=== PATIENT | male | born 1990 | race Caucasian/White ===

== ENCOUNTER 2018-02-14 15:17 | Observation (INO) | payer OTHER ==
[2018-02-14] MEDS ORDERED: methylPREDNISolone NA SUCC 125 MG/2 ML VIAL IVPB ONE (15:25)
--- NOTE | 2018-02-14 15:25 | PDOC ---
History of Present Illness - General History Source: Patient Exam Limitations: No Limitations <Beatriz Traylor - Last Filed: 02/14/18 18:10> - General History Source: Patient Exam Limitations: No Limitations - History of Present Illness Initial Comments: 02/14/18 16:09 The patient is a 27-year-old male, with a significant past medical history of asthma, who presents to the ED via EMS with severe asthma exacerbation. 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 The patient continued to work and did not take any albuterol. Soon after the patient collapsed, landing on his right shoulder. Patient does not recall the incident. EMS was called and the patient was given Decadron, DuoNeb 3, magnesium 3 g, epinephrine IM x 2 (or 3) prior to arrival to the ED. On exam, the patient states that he may have had a mild respiratory infection. He denies any nausea, vomiting, diarrhea, or abdominal pain. Allergies: NKA Surgical History: Denies Social History: Reports tobacco use. Pt is a social drinker. Denies any drug use. PCP: None <Mary Calix - Last Filed: 02/14/18 18:20> - General Chief Complaint: Asthma Stated Complaint: ASTHMA Time Seen by Provider: 02/14/18 15:25 Past History <Beatriz Traylor - Last Filed: 02/14/18 18:10> <Mary Calix - Last Filed: 02/14/18 18:20> - Past Medical History Allergies/Adverse Reactions: Allergies Allergy/AdvReac Type Severity Reaction Status Date / Time No Known Allergies Allergy Verified 02/14/18 15:33 Review of Systems - Review of Systems Able to Perform ROS?: Yes Comments:: 02/14/18 16:09 GENERAL/CONSTITUTIONAL: No: fever, chills, weakness, loss of appetite. HEAD, EYES, EARS, NOSE AND THROAT: No: change in vision, ear pain, discharge, sore throat, throat swelling. CARDIOVASCULAR: (+)palpitations. No: chest pain, lightheadedness, syncope RESPIRATORY: (+)shortness of breath. No: cough, wheezing, hemoptysis, stridor. GASTROINTESTINAL: No: nausea, vomiting, abdominal cramping, diarrhea, rectal bleeding, constipation. GENITOURINARY: No: dysuria, hematuria, frequency, urgency, flank pain. MUSCULOSKELETAL: No: back pain, neck pain, joint pain, muscle swelling or pain SKIN AND BREASTS: No: lesions, pallor, rash or easy bruising. NEUROLOGIC: (+)loss of consciousness. No: headache, vertigo, paresthesias, weakness ENDOCRINE: No: unexplained weight gain or loss HEMATOLOGIC/LYMPHATIC: No: anemia, easy bleeding, swelling nodes <Mary Calix - Last Filed: 02/14/18 18:20> *Physical Exam - Vital Signs Last Vital Signs Temp Pulse Resp BP Pulse Ox 98 F 118 H 18 140/75 100 02/14/18 15:20 02/14/18 15:20 02/14/18 15:20 02/14/18 15:20 02/14/18 15:20 - Physical Exam Comments: 02/14/18 16:10 GENERAL: The patient is in no acute distress. HEAD: Normal with no signs of trauma. EYES: PERRLA, EOMI, sclera anicteric, conjunctiva clear. ENT: Ears normal, nares patent, oropharynx clear without exudates. Moist mucous membranes. NECK: Normal range of motion, supple without lymphadenopathy, JVD, or masses. LUNGS: Breath sounds equal, clear to auscultation bilaterally. No wheezes, and no crackles. HEART:Regular rate and rhythm, normal S1 and S2 without murmur, rub or gallop. ABDOMEN: Soft, nontender, normoactive bowel sounds. No guarding, no rebound. EXTREMITIES: Normal range of motion, no edema. No clubbing or cyanosis. No erythema, or tenderness. NEUROLOGICAL: Cranial nerves II through XII grossly intact. Normal speech. No focal neurological deficits. MUSCULOSKELETAL: Back non-tender to palpation, no CVA tenderness SKIN: Warm, Dry, normal turgor, no rashes or lesions noted. <Mary Calix - Last Filed: 02/14/18 18:20> ED Treatment Course - LABORATORY CBC & Chemistry Diagram: 02/14/18 15:41 02/14/18 15:41 <Beatriz Traylor - Last Filed: 02/14/18 18:10> - LABORATORY CBC & Chemistry Diagram: 02/14/18 15:41 02/14/18 15:41 - ADDITIONAL ORDERS Additional order review: 02/14/18 15:41 RBC 5.28 MCV 86.0 MCHC 34.0 RDW 14.0 MPV 10.5 Neutrophils % No Result Required. Lymphocytes % No Result Required. - RADIOLOGY Radiology Studies Ordered: 02/14/18 18:20 Chest X-Ray was reviewed by Dr. Traylor and over-read by Radiology. Impression: No evidence of acute infiltrate, pulmonary vascular congestion or pleural effusion. <Mary Calix - Last Filed: 02/14/18 18:20> Medical Decision Making - Medical Decision Making 02/14/18 15:49 Mr. Nobles is a 27-year-old male brought into the emergency department via EMS due to severe asthma exacerbation. 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 Was at work today, felt that he had an asthma exacerbation. He could not stop working so persisted despite his shortness of breath and wheezing. Patient did not take any albuterol. Patient then collapsed while carrying a box. Has no memory of what happened. Landed on his right shoulder. EMS was called. Patient noted to be profoundly short of breath. He was given Decadron, DuoNeb 3, magnesium 3 g, epinephrine IM x 2(or 3) Patient presents emergency Department short of breath however able to speak in complete sentences. Patient appeared jumpy Mentation: Patient is diaphoretic, awake, alert Heart is tachycardic but regular, Lungs: No wheezing noted, equal breath sounds. No abdominal tenderness to palpation Will do: Labs, EKG, continuous monitoring. Will plan to place on observation given the amount of medication she was given for his asthma exacerbation. 02/14/18 16:38 Laboratory Tests 02/14/18 02/14/18 15:41 15:41 WBC 19.7 H Hgb 15.5 Hct 45.4 Plt Count 300 Sodium 140 Potassium 3.3 L Chloride 108 H Carbon Dioxide 22 Anion Gap 10 BUN 14 Creatinine 1.0 Random Glucose 129 H 02/14/18 17:08 EKG: SR, rate of 91 bpm, axis nml, intervals nml, t wave flattening noted through out, (+) PVCs Pt states she feels better Will place on observation <Beatriz Traylor - Last Filed: 02/14/18 18:10> *DC/Admit/Observation/Transfer - Discharge Dispostion Admit: Yes <Beatriz Traylor - Last Filed: 02/14/18 18:10> - Attestations Scribe Attestion: 02/14/18 16:36 Documentation prepared by Mary Calix, acting as bio medical technician for Beatriz Traylor MD. <Mary Calix - Last Filed: 02/14/18 18:20> Diagnosis at time of Disposition: Asthma exacerbation Qualifiers: Asthma severity: severe Asthma persistence: persistent Qualified Code(s): J45.51 - Severe persistent asthma with (acute) exacerbation - Discharge Dispostion Condition at time of disposition: Good
[2018-02-14] MEDS ORDERED: BENZOIN/ALOE VERA/STORAX/TOLU 58 ML BOTTLE ONE (15:36)
[2018-02-14] MEDS ORDERED: EPINEPHrine/PF 1 MG/1 ML (1:1,000) AMPULE ONE (15:38)
[2018-02-14] MEDS ORDERED: DEXAMETHASONE SOD PHOSPHATE 10 MG/1 ML VIAL ONE (15:38)
[2018-02-14] MEDS ORDERED: ALBUTEROL SO4 2.5/IPRATROPIUM 0.5 INH SOL 3 ML VIAL.NEB. NEB ONE (15:38)
[2018-02-14] MEDS ORDERED: MAGNESIUM SULF 50% (8.12 MEQ/2 ML-1 GM VIAL) ONE (15:38)
[2018-02-14 15:48] LABS: HEMATOCRIT 45.4 % (35.4-49); HEMOGLOBIN 15.5 GM/dL (11.7-16.9); MCH 29.3 pg (25.7-33.7); MEAN PLT VOLUME 10.5 fl (7.5-11.1); PLATELET COUNT 300 K/MM3 (134-434); RBC 5.28 M/mm3 (4.00-5.60); WHITE BLOOD COUNT 19.7 K/mm3 (4.0-10.0)
[2018-02-14 16:08] LABS: ALBUMIN 4.2 g/dl (3.4-5.0); ALK PHOS 137 U/L (45-117); ANION GAP 10 (8-16); BLOOD UREA NITROGEN 14 mg/dL (7-18); CALCIUM 9.3 mg/dL (8.5-10.1); CHLORIDE 108 mmol/L (98-107); CO2 22 mmol/L (21-32); GLUCOSE,RANDOM 129 mg/dL (74-106); POTASSIUM 3.3 mmol/L (3.5-5.1); SGOT/AST 18 U/L (15-37); SGPT/ALT 27 U/L (12-78); SODIUM 140 mmol/L (136-145); TOT PROT 7.7 g/dl (6.4-8.2)
[2018-02-14 18:01] LABS: PLATELET ESTIMATE ADEQUATE
--- NOTE | 2018-02-14 18:16 | HP ---
CHIEF COMPLAINT: Asthma attack PCP: None HISTORY OF PRESENT ILLNESS: The patient is a 27-year-old male, with a significant past medical history of asthma and migraine headaches with aura. His aura includes flashing lights, "black in the corners" of his eyes, and chest pressure. 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 He continued to work but the symptoms became worse. He collapsed, landing on his right shoulder. The next thing he remembers is EMS putting him on a stretcher. EMS administered Decadron , DuoNeb 3, magnesium 3 g, epinephrine IM x 2 (or 3) in the field. On exam in the ED, patient was diaphoretic and tachycardic. He was not wheezing. He stated he may have had a mild respiratory infection. Patient was transferred from the ED to the floor. Per nursing supervisor power reactor, as she was walking by patient's room she heard a thud. She went in to find patient on the floor. She observed eye-jerking movements and tonic-clonic type activity resulting in patient hitting his head against the floor. A rapid response was called (see separate note from Rapid Response Team). Patient remembers getting out of bed and falling to the floor, but not the events thereafter. When he woke up he saw flashing lights, the "black corners," and he had a headache typical of his migraines which is pain to right temporal lobe and occipital lobe. Patient was not incontinent nor did he bite his tongue during either episode. It is not clear if there was a post-ictal state. The patient has not seen a health care provider in many years. He buys albuterol from a pharmacy without a prescription. He takes Advil for his migraines. 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 Smoking: current every day Alcohol: beer on the weekends Drugs: marijuana; did Silke once three years ago Family History: mother age 62 with diabetes, h/o lower extremity blood clots on blood thinners, had CVA at age 52; father unknown; sister with diabetes and panic attacks Allergies No Known Allergies Allergy (Verified 02/14/18 15:33) HOME MEDICATIONS: Home Medications Medication Instructions Recorded None 02/14/18 REVIEW OF SYSTEMS CONSTITUTIONAL: Absent: fever, chills, diaphoresis, generalized weakness, malaise, loss of appetite, weight change HEENT: Absent: rhinorrhea, nasal congestion, throat pain, throat swelling, difficulty swallowing, mouth swelling, ear pain, eye pain, visual changes CARDIOVASCULAR: +chest pressure, palpitations Absent: chest pain, syncope, palpitations, irregular heart rate, lightheadedness , peripheral edema RESPIRATORY: +SOB Absent: cough, dyspnea with exertion, orthopnea, wheezing, stridor, hemoptysis GASTROINTESTINAL: Absent: abdominal pain, abdominal distension, nausea, vomiting, diarrhea, constipation, melena, hematochezia GENITOURINARY: Absent: dysuria, frequency, urgency, hesitancy, hematuria, flank pain, genital pain MUSCULOSKELETAL: Absent: myalgia, arthralgia, joint swelling, back pain, neck pain SKIN: Absent: rash, itching, pallor HEMATOLOGIC/IMMUNOLOGIC: Absent: easy bleeding, easy bruising, lymphadenopathy, frequent infections ENDOCRINE: Absent: unexplained weight gain, unexplained weight loss, heat intolerance, cold intolerance NEUROLOGIC: Absent: headache, focal weakness or paresthesias, dizziness, unsteady gait, seizure, mental status changes, bladder or bowel incontinence PSYCHIATRIC: Absent: anxiety, depression, suicidal or homicidal ideation, hallucinations. PHYSICAL EXAMINATION Vital Signs - 24 hr 02/14/18 15:20 Temperature 98 F Pulse Rate 118 H Respiratory 18 Rate Blood Pressure 140/75 O2 Sat by Pulse 100 Oximetry (%) GENERAL: Awake, alert, and fully oriented, in no acute distress. HEAD: Normal with no signs of trauma. EYES: Pupils equal, round and reactive to light, extraocular movements intact, sclera anicteric, conjunctiva clear. No lid lag. EARS, NOSE, THROAT: Ears normal, nares patent, oropharynx clear without exudates. Moist mucous membranes. NECK: Normal range of motion, supple without lymphadenopathy, JVD, or masses. LUNGS: Mild end-expiratory wheezing HEART: Regular rate and rhythm, normal S1 and S2 without murmur, rub or gallop. ABDOMEN: Soft, nontender, not distended, normoactive bowel sounds, no guarding, no rebound, no masses. MUSCULOSKELETAL: Normal range of motion at all joints. No bony deformities or tenderness. No CVA tenderness. UPPER EXTREMITIES: 2+ pulses, warm, well-perfused. No cyanosis. No clubbing. No peripheral edema. LOWER EXTREMITIES: 2+ pulses, warm, well-perfused. No calf tenderness. No peripheral edema. NEUROLOGICAL: Cranial nerves II-XII intact. Normal speech. Laboratory Results - last 24 hr 02/14/18 02/14/18 15:41 15:41 WBC 19.7 H RBC 5.28 Hgb 15.5 Hct 45.4 MCV 86.0 MCH 29.3 MCHC 34.0 RDW 14.0 Plt Count 300 MPV 10.5 Neutrophils % No Result Required. Neutrophils % (Manual) 54.0 Band Neutrophils % 0.0 Lymphocytes % No Result Required. Lymphocytes % (Manual) 35.0 Monocytes % (Manual) 2 L Eosinophils % (Manual) 0.0 Basophils % (Manual) 1.0 Platelet Estimate Adequate Sodium 140 Potassium 3.3 L Chloride 108 H Carbon Dioxide 22 Anion Gap 10 BUN 14 Creatinine 1.0 Creat Clearance w eGFR > 60 Random Glucose 129 H Calcium 9.3 Total Bilirubin 1.0 AST 18 ALT 27 Alkaline Phosphatase 137 H Total Protein 7.7 Albumin 4.2 ASSESSMENT/PLAN: 27 year-old male with a PMH significant for asthma and migraine with aura. Collapsed at work. Following transfer to floor from ED was heard falling to floor and seizure-type activity observed. Syncope --cardiac --two episodes of falling to the floor, one pre-hospital, one on med surg floor --transfer to telemetry --serial ECGs --echo ordered --correct electrolytes K>4, Mg>2 --cardiology consult Dr. Chavarria --pulmonary --Wells score 1.5, low risk --d-dimer pending --US BLE pending to r/o DVT --neuro --seizure-type activity observed by staff after second fall --no previous history of seizures but history of migraines with aura --CT head negative --utox pending --EEG --neuro consult for Dr. Hernández --orthostasis --NS x 1L now, then 125mL/hr --s/p fall --right shoulder xray pending --endocrine --fingersticks q4h --infectious --leukocytosis --iraheta-culture --requests HIV testing Asthma --duonebs scheduled and PRN FEN Fluids: NS @ 125mL/hr Electrolytes: replete as indicated Nutrition: regular diet DVT prophylaxis: oob, ambulation Dispo: continues to require observation. Full code. Visit type - Emergency Visit Emergency Visit: Yes ED Registration Date: 02/14/18 Care time: The patient presented to the Emergency Department on the above date and was hospitalized for further evaluation of their emergent condition. - New Patient This patient is new to me today: Yes Date on this admission: 02/14/18 - Critical Care Critical Care patient: No Hospitalist Screening - Colonoscopy Questionnaire Colonoscopy Questionnaire: Colonoscopy Questionnaire - Patient: 50 - 75 years old and never had a screening colonoscopy: No History of colon or rectal polyps, or CA: No History of IBD, Crohn's disease or UC: No History of abdominal radiation therapy as a child: No - Relative: 1 with colon or rectal CA, or polyps at age 60 or younger: Unknown Colon or rectal CA diagnosed at age 45 or younger: Unknown Multiple relatives with colon or rectal CA: Unknown - Outcome: Screening Result: Negative Screen
--- NOTE | 2018-02-14 19:17 | RAPID ---
Physical Examination Vital Signs: Vital Signs Temperature 98 F 02/14/18 15:20 Pulse Rate 99 H 02/14/18 18:49 Respiratory Rate 16 02/14/18 18:49 Blood Pressure 140/67 02/14/18 18:49 O2 Sat by Pulse Oximetry (%) 96 02/14/18 18:49 Findings/Remarks: Rapid Response called overhead. Patient was walking from the bathroom. Patient complained of palpitations and a sense of impending doom. He had a headache and his legs felt weak. He started feeling weak and fell. He denies LOC, loss of bowel/bladder, numbness/tingling. He feels anxious currently. He wants to go home. Patient received epinephrine earlier today in EMS. BP: 156/90 Pulse 78 Glucose- 129 HENT: Yes: Atraumatic, Normocephalic Cardiovascular: Yes: Tachycardia, S1, S2 Respiratory: Yes: Regular, CTA Bilaterally Labs: CBC, BMP 02/14/18 15:41 02/14/18 15:41 Rapid Response - Rapid Response Assessment: Likely vasovagal syncopal episode. No LOC Plan: Observe overnight Orthostatic vital signs Will continue to monitor
[2018-02-14] MEDS ORDERED: ACETAMINOPHEN 325 MG TABLET (FP) PO ONE (19:21)
[2018-02-14] MEDS ORDERED: SODIUM CHLORIDE 1,000 ML IV STA ×2 (20:43→21:57)
[2018-02-14] MEDS ORDERED: SODIUM CHLORIDE 1,000 ML IV SCH ×2 (20:45→21:57)
[2018-02-14] MEDS ORDERED: POTASSIUM CHLORIDE TABS 20 MEQ TABLET.ER (FP) PO SCH (21:00)
[2018-02-14] MEDS ORDERED: ALBUTEROL SO4 2.5/IPRATROPIUM 0.5 INH SOL 3 ML VIAL.NEB. NEB SCH (22:00)
[2018-02-14] MEDS: ALBUTEROL SO4 2.5/IPRATROPIUM 0.5 INH SOL 3 ML VIAL.NEB. NEB SCH (22:24)
[2018-02-14 22:35] LABS: URINE APPEARANCE CLEAR; URINE BILIRUBIN NEGATIVE (<2.0 mg/dL); URINE BLOOD NEGATIVE (NEGATIVE); URINE COLOR LTYELLOW; URINE GLUCOSE (UA) NEGATIVE (NEGATIVE); URINE KETONE 1+ (NEGATIVE); URINE LEUK ESTERASE NEGATIVE (NEGATIVE); URINE NITRITE NEGATIVE (NEGATIVE); URINE PROTEIN NEGATIVE (NEGATIVE); URINE UROBILINOGEN NEGATIVE mg/dL (0.2-1.0)
[2018-02-14 23:07] LABS: COCAINE, UR NEGATIVE ng/ml (CUTOFF=300); METHADONE, UR NEGATIVE ng/ml (CUTOFF=300); OPIATES, URI NEGATIVE ng/ml (CUTOFF=300); PHENCYCLIDINE,URINE NEGATIVE ng/ml (CUTOFF=25); URINE AMPHETAMINES NEGATIVE ng/ml (CUTOFF=500); URINE BARBITURATES NEGATIVE ng/ml (CUTOFF=200); URINE BENZODIAZEPINES NEGATIVE ng/ml (CUTOFF=200)
[2018-02-15 01:56] VITALS: BMI 30.5
[2018-02-15] MEDS: ALBUTEROL SO4 2.5/IPRATROPIUM 0.5 INH SOL 3 ML VIAL.NEB. NEB SCH ×6 (02:03→22:00)
[2018-02-15] MEDS ORDERED: ACETAMINOPHEN 325 MG TABLET (FP) PO PRN (02:37)
[2018-02-15] MEDS ORDERED: POTASSIUM CHLORIDE TABS 20 MEQ TABLET.ER (FP) PO SCH (03:00)
[2018-02-15 07:21] LABS: BASO % 0.1 % (0-2.0); HEMATOCRIT 43.4 % (35.4-49); HEMOGLOBIN 14.8 GM/dL (11.7-16.9); LYMPH % 20.7 % (8-40); MCH 29.2 pg (25.7-33.7); MCHC 34.1 g/dl (32.0-35.9); MEAN CELL VOLUME 85.7 fl (80-96); MEAN PLT VOLUME 10.1 fl (7.5-11.1); MONO % 5.1 % (3.8-10.2); NEUT % 74.1 % (42.8-82.8); PLATELET COUNT 228 K/MM3 (134-434); RBC 5.07 M/mm3 (4.00-5.60); WHITE BLOOD COUNT 9.8 K/mm3 (4.0-10.0)
[2018-02-15 07:51] LABS: CHLORIDE 111 mmol/L (98-107); SODIUM 139 mmol/L (136-145)
[2018-02-15 07:55] LABS: ANION GAP 4 (8-16); BLOOD UREA NITROGEN 9 mg/dL (7-18); CALCIUM 8.7 mg/dL (8.5-10.1); CO2 24 mmol/L (21-32); CREATININE 0.6 mg/dL (0.7-1.3); GLUCOSE,RANDOM 103 mg/dL (74-106); MAGNESIUM 2.1 mg/dL (1.8-2.4)
--- NOTE | 2018-02-15 08:45 | PN ---
Physical Exam: SUBJECTIVE: Patient seen and examined. Overnight events noted. Pt states he feels much better this morning and his breathing is back to baseline. OBJECTIVE: Vital Signs Period Temp Pulse Resp BP Sys/Yousif Pulse Ox Last 24 Hr 97.3 F-98.1 F 67-118 16-20 112-156/50-101 96-100 PE Neuro: alert, awake, cn 2-12intact Pulm: few rhonchi, no wheezing CV: s1s2 tachycardia Abd: s nt nd + bs Ext: warm, no le edema Laboratory Results - last 24 hr 02/15/18 02/15/18 02/15/18 00:05 06:49 06:49 WBC 9.8 D RBC 5.07 Hgb 14.8 Hct 43.4 MCV 85.7 MCH 29.2 MCHC 34.1 RDW 14.0 Plt Count 228 D MPV 10.1 Neutrophils % 74.1 Neutrophils % (Manual) Band Neutrophils % Lymphocytes % 20.7 Lymphocytes % (Manual) Monocytes % 5.1 Monocytes % (Manual) Eosinophils % 0.0 Eosinophils % (Manual) Basophils % 0.1 Basophils % (Manual) Platelet Estimate D-Dimer Sodium 139 Potassium 4.0 D Chloride 111 H Carbon Dioxide 24 Anion Gap 4 L BUN 9 D Creatinine 0.6 L D Creat Clearance w eGFR POC Glucometer Random Glucose 103 D Calcium 8.7 Magnesium 2.1 Total Bilirubin AST ALT Alkaline Phosphatase C-Reactive Protein < 0.3 Total Protein Albumin Urine Color Urine Appearance Urine pH Ur Specific [place] Urine Protein Urine Glucose (UA) Urine Ketones Urine Blood Urine Nitrite Urine Bilirubin Urine Urobilinogen Ur Leukocyte Esterase Opiates Screen Methadone Screen Barbiturate Screen Phencyclidine Screen Ur Amphetamines Screen MDMA (Ecstasy) Screen Benzodiazepines Screen Cocaine Screen U Marijuana (THC) Screen Active Medications Generic Name Dose Route Start Last Admin Trade Name Freq PRN Reason Stop Dose Admin Acetaminophen 650 mg 02/15/18 02:37 02/15/18 02:55 Tylenol - PO 650 mg Q6H PRN Administration PAIN OR FEVER Albuterol/Ipratropium 1 amp 02/14/18 22:00 02/15/18 06:09 Duoneb - NEB 1 amp Q4H BARBIE Administration Sodium Chloride 1,000 mls @ 125 mls/hr 02/14/18 21:57 02/15/18 01:40 Normal Saline - IV 125 mls/hr ASDIR BARBIE Administration Assessment: 27 year old male with a PMH significant for asthma and migraine with aura. Collapsed at work. Following transfer to floor from ED was heard falling to floor and seizure-type activity observed. Plan: 1. Syncope - x2 episodes during admission - ECHO ordered - Initially orthostatic positive, will repeat now - Cardiology consulted 2. Acute asthma exacerbation - Improved with solumedrol 125mg - Short course medrol 40mg BID - Duonebs - DVT Doppler negative 3. ? seizures, history of migraines with aura - EEG ordered - Neuro consult placed 4. s/p fall -right shoulder xray pending 5. Leukocytosis - Resolved 6. DVT prophylaxis: oob, ambulation Dispo: continues to require observation. Full code. Visit type - Emergency Visit Emergency Visit: Yes ED Registration Date: 02/14/18 Care time: The patient presented to the Emergency Department on the above date and was hospitalized for further evaluation of their emergent condition. - New Patient This patient is new to me today: Yes Date on this admission: 02/15/18 - Critical Care Critical Care patient: No
[2018-02-15] MEDS: methylPREDNISolone NA SUCC 40 MG/1 ML VIAL IVPUSH SCH ×2 (10:00→21:37)
--- NOTE | 2018-02-15 12:59 | CON.CARD ---
Consult Consult Specialty:: cardiology Referred by:: John Reason for Consultation:: Syncope - History of Present Illness Chief Complaint: Shortness of breath and syncope History of Present Illness: The patient is a 27-year-old man with a history of asthma, migraine headaches, now presenting with syncope and collapse. 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 He claims that this was the beginning of an asthma exacerbation. The patient had to continue his job. His shortness of breath gradually progressed, and he suddenly collapsed. The patient had a second syncopal event in his room. No events noted on telemetry. The patient has been in sinus rhythm. He claims that he is feeling well. He is back to his baseline. The pulmonary embolus was ruled out by CT. Brain imaging was unremarkable. Telemetry shows sinus rhythm. No arrhythmias documented at this point. 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 Pulmonary: Yes: Asthma - Alcohol/Substance Use Hx Alcohol Use: No - Smoking History Smoking history: Current some day smoker Have you smoked in the past 12 months: Yes Aproximately how many cigarettes per day: 10 Home Medications - Allergies Allergies/Adverse Reactions: Allergies Allergy/AdvReac Type Severity Reaction Status Date / Time No Known Allergies Allergy Verified 02/14/18 15:33 - Home Medications Home Medications: Ambulatory Orders Unobtainable [Unobtainable] 02/14/18 Review of Systems - Review of Systems Constitutional: reports: No Symptoms Eyes: reports: No Symptoms HENT: reports: No Symptoms Neck: reports: No Symptoms Cardiovascular: reports: No Symptoms Respiratory: reports: SOB Gastrointestinal: reports: No Symptoms Genitourinary: reports: No Symptoms Breasts: reports: No Symptoms Reported Musculoskeletal: reports: No Symptoms Integumentary: reports: No Symptoms Neurological: reports: No Symptoms Endocrine: reports: No Symptoms Hematology/Lymphatic: reports: No Symptoms Psychiatric: reports: No Symptoms Vital Signs: Vital Signs Temperature 97.3 F L 02/15/18 06:00 Pulse Rate 90 02/15/18 06:00 Respiratory Rate 20 02/15/18 06:00 Blood Pressure 112/50 02/15/18 06:00 O2 Sat by Pulse Oximetry (%) 98 02/14/18 22:00 Constitutional: Yes: Well Nourished, No Distress, Calm Eyes: Yes: WNL, Conjunctiva Clear, EOM Intact HENT: Yes: WNL, Atraumatic, Normocephalic Neck: Yes: WNL, Supple, Trachea Midline Respiratory: Yes: WNL, Regular, CTA Bilaterally Gastrointestinal: Yes: WNL, Normal Bowel Sounds, Soft Renal/: Yes: WNL Cardiovascular: Yes: WNL, Regular Rate and Rhythm JVD: No Carotid Bruit: No Heart Sounds: Yes: S1, S2 Musculoskeletal: Yes: WNL Extremities: Yes: WNL Edema: No Peripheral Pulses WNL: Yes Peripheral Pulses: 2+ Left Carotid, 2+ Right Carotid, 2+ Left Femoral, 2+ Right Femoral, 2+ Left Popliteal, 2+ Right Popliteal, 2+ Left Doralis Pedis, 2+ Right Dorsalis Pedis Neurological: Yes: WNL, Alert, Oriented ...Motor Strength: WNL Psychiatric: Yes: WNL - Other Data Labs, Other Data: CBC, BMP 02/15/18 06:49 02/15/18 06:49 Assessment/Plan 27-year-old man presenting with syncope and shortness of breath. Most likely asthma exacerbation with hypoxemia at the field. Had a syncopal event in the hospital 2. There is no evidence of ischemia nor acute coronary syndrome. The patient is in sinus rhythm. No arrhythmias documented at this point. Chest CT showed no evidence of pulmonary emboli. Brain imaging was unremarkable. Please continue telemetry for the time being. Encourage PO fluid intake. Please arrange for an echocardiogram. Respiratory toilet. No need for further cardiac workup at this point. The patient is stable.
[2018-02-15] MEDS ORDERED: PNEUMOC 13-VAL CONJ-DIP CRM/PF 0.5 ML DISP.SYRIN IM ONE (14:46)
--- NOTE | 2018-02-15 15:47 | CON.NEURO ---
Consult - History of Present Illness History of Present Illness: The patient is a 27-year-old male, with a significant past medical history of asthma and migraine headaches with aura. His aura includes flashing lights, "black in the corners" of his eyes, and chest pressure. 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 He continued to work but the symptoms became worse. He collapsed, landing on his right shoulder. The next thing he remembers is EMS putting him on a stretcher. EMS administered Decadron , DuoNeb 3, magnesium 3 g, epinephrine IM x 2 (or 3) in the field. On exam in the ED, patient was diaphoretic and tachycardic. He was not wheezing. He stated he may have had a mild respiratory infection. Patient was transferred from the ED to the floor. Per nursing machine maintenance supervisor, as she was walking by patient's room she heard a thud. She went in to find patient on the floor. She observed eye-jerking movements and tonic-clonic type activity resulting in patient hitting his head against the floor. A rapid response was called (see separate note from Rapid Response Team). Patient remembers getting out of bed and falling to the floor, but not the events thereafter. When he woke up he saw flashing lights, the "black corners," and he had a headache typical of his migraines which is pain to right temporal lobe and occipital lobe. Patient was not incontinent nor did he bite his tongue during either episode. It is not clear if there was a post-ictal state. The patient has not seen a health care provider in many years. He buys albuterol from a pharmacy without a prescription. He takes Advil for his migraines. -Yesterday-Rapid Response called overhead. Patient was walking from the bathroom. Patient complained of palpitations and a sense of impending doom. He had a headache and his legs felt weak. He started feeling weak and fell. He denies LOC, loss of bowel/bladder, numbness/tingling. -He describes his migraine as ocurring every week, has a visual aura followed by 2 hours at least of holocephalgic headache, takes Advil with moderate relief for it. Denies family hx. of headaches. 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 Pulmonary: Yes: Asthma - Alcohol/Substance Use Hx Alcohol Use: No - Smoking History Smoking history: Current some day smoker Have you smoked in the past 12 months: Yes Aproximately how many cigarettes per day: 10 Home Medications - Allergies Allergies/Adverse Reactions: Allergies Allergy/AdvReac Type Severity Reaction Status Date / Time No Known Allergies Allergy Verified 02/14/18 15:33 - Home Medications Home Medications: Ambulatory Orders Unobtainable [Unobtainable] 02/14/18 Physical Exam-Neuro Vital Signs: Vital Signs Temperature 97.9 F 02/15/18 14:00 Pulse Rate 82 02/15/18 14:00 Respiratory Rate 18 02/15/18 14:00 Blood Pressure 127/87 02/15/18 14:00 O2 Sat by Pulse Oximetry (%) 100 02/15/18 09:00 Labs: CBC, BMP 02/15/18 06:49 02/15/18 06:49 - Neuro Exam DTR's: 2+ Left Bicep, 2+ Right Bicep, 2+ Left Tricep, 2+ Right Tricep, 2+ Left Brachioradialis, 2+ Right Brachioradialis, 2+ Left Achilles, 2+ Right Achilles Motor Strength: 5/5: Left Arm, Right Arm, Left Leg, Right Leg Imaging - Results Cat Scan: Report Reviewed (Without acute changes, normal) Assessment/Plan Pt. with migraine without aura, admitted with episode of syncope during an asthma attack and a presyncopal episode in hospital after suddenly standing up. Neuro exam without focality. The syncope/presyncope likely due to hypoxia/ orthostasis, there is no evidence these two episodes were seizures. Oferred him prophylactic treatment for migraine but he refused. Have recommended 500mg of Naproxyn prn for headache. He will f/u at my office. Thank you, Esdras Hernández MD
[2018-02-15] MEDS ORDERED: PNEUMOCOCCAL 23 VACCINE 0.5 ML VIAL IM ONE (16:00)
[2018-02-15] MEDS ORDERED: FLU VACCINE QUAD 60 MCG/0.5 ML (MDV 17-18) IM ONE (16:00)
--- NOTE | 2018-02-15 17:41 | EKG ---
Test Reason : Blood Pressure : / mmHG Vent. Rate : 085 BPM Atrial Rate : 085 BPM P-R Int : 144 ms QRS Dur : 106 ms QT Int : 374 ms P-R-T Axes : 051 067 043 degrees QTc Int : 445 ms SINUS RHYTHM WITH SINUS ARRHYTHMIA WITH OCCASIONAL PREMATURE VENTRICULAR COMPLEXES OTHERWISE NORMAL ECG WHEN COMPARED WITH ECG OF 14-FEB-2018 15:44, NON-SPECIFIC CHANGE IN ST SEGMENT IN ANTERIOR LEADS T WAVE INVERSION NO LONGER EVIDENT IN ANTERIOR LEADS Confirmed by MD LETA, BETTY ([id number]) on 02/15/2018 5:40:54 PM Referred By: William CABELLO Confirmed By:BETTY GILLETTE MD
[2018-02-16] MEDS: ALBUTEROL SO4 2.5/IPRATROPIUM 0.5 INH SOL 3 ML VIAL.NEB. NEB SCH ×2 (02:05→06:40)
--- NOTE | 2018-02-16 08:28 | PN ---
Physical Exam: SUBJECTIVE: Patient seen and examined. He has returned to his baseline he feels well. OBJECTIVE: Vital Signs Period Temp Pulse Resp BP Sys/Yousif Pulse Ox Last 24 Hr 97.7 F-98.5 F 63-91 16-20 115-134/60-87 100-100 PE Neuro: alert, awake, cn 2-12intact Pulm: CTAB no cough no wheezing CV: s1s2 rrr Abd: s nt nd + bs Ext: warm, no le edema Laboratory Results - last 24 hr 02/15/18 02/15/18 02/15/18 00:05 06:49 06:49 Hemoglobin A1c % 5.0 Prolactin 6.8 HIV 1&2 Antibody Screen Negative HIV P24 Antigen Negative Active Medications Generic Name Dose Route Start Last Admin Trade Name Freq PRN Reason Stop Dose Admin Acetaminophen 650 mg 02/15/18 02:37 02/15/18 02:55 Tylenol - PO 650 mg Q6H PRN Administration PAIN OR FEVER Albuterol/Ipratropium 1 amp 02/14/18 22:00 02/16/18 06:40 Duoneb - NEB 1 amp Q4H BARBIE Administration Methylprednisolone Sodium Succinate 40 mg 02/15/18 10:00 02/15/18 21:37 Solu-Medrol - IVPUSH 40 mg BID BARBIE Administration Assessment: 27 year old male with a PMH significant for asthma and migraine with aura. Collapsed at work. Following transfer to floor from ED was heard falling to floor and seizure-type activity observed. Plan: 1. Syncope - x2 episodes during admission likely due to hypoxia 2/2 asthma exacerbation, no signs of ACS - ECHO ordered - Orthostatic negative - Cardiology seeing 2. Acute asthma exacerbation - Can taper to po steroids, home with short taper 40mg x3 more days - Duonebs - DVT Doppler negative - Referral for pulmonary Dr. Rodriguez enclosed 3. Migraines - Seizures ruled out, more likely pre syncope/syncope d/t hypoxemia - Naproxyn 500mg for PHELAN and neuro follow up in office 4. Leukocytosis - Resolved 5. DVT prophylaxis: oob, ambulation Dispo: - DC home following ECHO Visit type - Emergency Visit Emergency Visit: Yes ED Registration Date: 02/14/18 Care time: The patient presented to the Emergency Department on the above date and was hospitalized for further evaluation of their emergent condition. - New Patient This patient is new to me today: No - Critical Care Critical Care patient: No
[2018-02-16] MEDS: predniSONE 20 MG TABLET (UD) PO SCH (10:22)
--- NOTE | 2018-02-16 16:19 | EKG ---
Test Reason : Blood Pressure : / mmHG Vent. Rate : 091 BPM Atrial Rate : 091 BPM P-R Int : 142 ms QRS Dur : 092 ms QT Int : 394 ms P-R-T Axes : 040 037 040 degrees QTc Int : 484 ms SINUS RHYTHM WITH SINUS ARRHYTHMIA WITH OCCASIONAL PREMATURE VENTRICULAR COMPLEXES LEFT ATRIAL ENLARGEMENT NONSPECIFIC ST ABNORMALITY ABNORMAL ECG NO PREVIOUS ECGS AVAILABLE Confirmed by MD LETA, BETTY ([id number]) on 02/16/2018 4:19:46 PM Referred By: Confirmed By:BETTY GILLETTE MD
[2018-02-17] MEDS: predniSONE 20 MG TABLET (UD) PO SCH (09:07)
--- NOTE | 2018-02-17 14:21 | DS ---
Physical Exam: SUBJECTIVE: Patient seen and examined OBJECTIVE: Vital Signs Period Temp Pulse Resp BP Sys/Yousif Pulse Ox Last 24 Hr 97.7 F-98.5 F 62-85 16-20 115-130/51-76 97-100 PHYSICAL EXAM GENERAL: The patient is awake, alert, and fully oriented, in no acute distress. HEAD: Normal with no signs of trauma. EYES: PERRL, extraocular movements intact, sclera anicteric, conjunctiva clear. ENT: Ears normal, nares patent, oropharynx clear without exudates, moist mucous membranes. NECK: Trachea midline, full range of motion, supple. LUNGS: Breath sounds equal, clear to auscultation bilaterally, no wheezes, no crackles, no accessory muscle use. HEART: Regular rate and rhythm, S1, S2 without murmur, rub or gallop. ABDOMEN: Soft, nontender, nondistended, normoactive bowel sounds, no guarding, no rebound, no hepatosplenomegaly, no masses. EXTREMITIES: 2+ pulses, warm, well-perfused, no edema. NEUROLOGICAL: Cranial nerves II through XII grossly intact. Normal speech, gait not observed. PSYCH: Normal mood, normal affect. SKIN: Warm, dry, normal turgor, no rashes or lesions noted. LABS HOSPITAL COURSE: Date of Admission:02/14/18 Date of Discharge: 02/17/18 Discharge Summary Reason For Visit: EXACERBATION OF ASTHMA Current Active Problems Asthma exacerbation (Acute) Condition: Improved - Instructions Referrals: Sterling Cooper MD [Staff Physician] - Disposition: HOME - Home Medications Comprehensive Discharge Medication List: Ambulatory Orders Unobtainable [Unobtainable] 02/14/18
--- NOTE | 2018-02-17 14:30 | PN ---
Progress Note, Physician Chief Complaint: no new events tele neg History of Present Illness: The patient is a 27-year-old man with a history of asthma, migraine headaches, now presenting with syncope and collapse. 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 He claims that this was the beginning of an asthma exacerbation. The patient had to continue his job. His shortness of breath gradually progressed, and he suddenly collapsed. The patient had a second syncopal event in his room. No events noted on telemetry. The patient has been in sinus rhythm. He claims that he is feeling well. He is back to his baseline. The pulmonary embolus was ruled out by CT. Brain imaging was unremarkable. Telemetry shows sinus rhythm. No arrhythmias documented at this point. Echo ordered and pending. - Current Medication List Current Medications: Active Medications Acetaminophen (Tylenol -) 650 mg PO Q6H PRN PRN Reason: PAIN OR FEVER Last Admin: 02/15/18 02:55 Dose: 650 mg Prednisone (Deltasone -) 40 mg PO DAILY BARBIE Last Admin: 02/17/18 09:07 Dose: 40 mg - Objective Vital Signs: Vital Signs Temperature 98 F 02/17/18 09:00 Pulse Rate 78 02/17/18 09:00 Respiratory Rate 18 02/17/18 09:00 Blood Pressure 130/74 02/17/18 09:00 O2 Sat by Pulse Oximetry (%) 100 02/17/18 09:00 Constitutional: Yes: Well Nourished, No Distress Eyes: Yes: Conjunctiva Clear, EOM Intact HENT: Yes: Atraumatic, Normocephalic Neck: Yes: Trachea Midline Cardiovascular: Yes: Regular Rate and Rhythm Respiratory: Yes: CTA Bilaterally Gastrointestinal: Yes: Normal Bowel Sounds Musculoskeletal: Yes: WNL Extremities: Yes: WNL Labs: CBC, BMP 02/15/18 06:49 02/15/18 06:49 Problem List - Problems (1) Syncope Assessment/Plan: Telemetry negative. Re check orthostatics Echo pending. Doubt arrhythmia. Code(s): R55 - SYNCOPE AND COLLAPSE Qualifiers: Syncope type: unspecified Qualified Code(s): R55 - Syncope and collapse
[2018-02-17 16:16] VITALS: BP 115/66; PULSE 70; TEMP 98.3
--- NOTE | 2018-02-19 13:20 | EKG ---
Test Reason : Blood Pressure : / mmHG Vent. Rate : 086 BPM Atrial Rate : 086 BPM P-R Int : 148 ms QRS Dur : 104 ms QT Int : 372 ms P-R-T Axes : 048 054 052 degrees QTc Int : 445 ms NORMAL SINUS RHYTHM NORMAL ECG WHEN COMPARED WITH ECG OF 14-FEB-2018 15:44, PREMATURE VENTRICULAR COMPLEXES ARE NO LONGER PRESENT T WAVE INVERSION NO LONGER EVIDENT IN ANTERIOR LEADS Confirmed by AZALIA MAC, MING ([id number]) on 02/19/2018 1:20:05 PM Referred By: Confirmed By:MING VIEYRA MD
== END 2018-02-17 18:17 | disposition home or self-care (01) ==
LOC: JER 15:17 → JERBED 18:10 → J6S 18:55 → J4W 21:33
PROVIDERS: ADMIT Internal Medicine; ATTEND Nurse Practitioner Acute Care
PROC: 3E0333Z Introduction of Anti-inflammatory into Peripheral Vein, Percutaneous Approach (ICD-10-PCS; principal; 2018-02-14)
PROC: 3E0337Z Introduction of Electrolytic and Water Balance Substance into Peripheral Vein, Percutaneous Approach (ICD-10-PCS; 2018-02-14)
PROC: 3E0F7GC Introduction of Other Therapeutic Substance into Respiratory Tract, Via Natural or Artificial Opening (ICD-10-PCS; 2018-02-14)
DX: J45.51 Severe persistent asthma with (acute) exacerbation (principal); F17.210 Nicotine dependence, cigarettes, uncomplicated; R55 Syncope and collapse; G43.909 Migraine, unspecified, not intractable, without status migrainosus; W18.39XA Other fall on same level, initial encounter; Y93.89 Activity, other specified; Y92.230 Patient room in hospital as the place of occurrence of the external cause; D72.829 Elevated white blood cell count, unspecified
CPT/HCPCS: 36415; 70450-TC; 71045-TC-FY; 73030-TC-RT-FY; 80048; 80053; 80307; 81003; 82962; 83036; 83735; 84146; 85025; 85379; 86140; 87040; 87086; 87389; 87804; 87899; 90688; 90732; 93005; 93010; 93306-TC; 93970-TC; 94640; 95816; 96361; 96374; 99283-25; G0009; G0378; J7030

== ENCOUNTER 2018-06-13 11:51 | Emergency (ER) | payer SELFPAY ==
--- NOTE | 2018-06-13 11:55 | PDOC ---
History of Present Illness - General Chief Complaint: Syncope/Near Syncope Stated Complaint: Syncope/Near Syncope Time Seen by Provider: 06/13/18 11:54 History Source: Patient, EMS Exam Limitations: No Limitations - History of Present Illness Initial Comments: 27 y/o male presenting via ambulance to [facility] ED after passing out at work. Pt states he was working outside and became very hot. He started experiencing chest tightness and lightheadedness just before blacking out. He awoke a little bit later without complaint. Denies head, neck, or back pain. Denies headache, change in vision, change in hearing, dizziness, numbness, paresthesia, chest pain, shortness of breath, abdominal pain, nausea, vomiting, or diarrhea. 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 Medic noted vitals were normal; BGL was 80; 12- lead EKG showed frequent PVCs but no other ectopy. Endorses a history of syncope. Last episode occurred under similar circumstances - he became hot while working outside. He was evaluated and discharged home by ER in [place]. Did not recall workup or diagnosis. Does not have a PCP. Has never had additional syncope workup. Denies family history of sudden at young age, syncope, or cardiac arrhythmia. EtOH: Drinks socially, last two weeks ago Tobacco: Current smoker, 1 pack per 2 weeks Illicit Drug: Denies Past History - Past Medical History Allergies/Adverse Reactions: Allergies Allergy/AdvReac Type Severity Reaction Status Date / Time No Known Allergies Allergy Verified 06/13/18 12:17 Home Medications: Ambulatory Orders Albuterol Sulfate Inhaler - [Ventolin Hfa Inhaler -] 1 - 2 inh PO Q4H 30 Days # 1 inhaler 02/17/18 Asthma: Yes Cardiac Disorders: No COPD: No HTN: No Comment:: -Asthma - H/o syncope, unknown etiology - Surgical History Comments:: - Denies past surgical history. Was hospitalized January 2018 for asthma exacerbation. - Suicide/Smoking/Psychosocial Hx Smoking History: Current some day smoker Have you smoked in the past 12 months: Yes Number of Cigarettes Smoked Daily: 10 Hx Alcohol Use: No Drug/Substance Use Hx: Yes Substance Use Type: Alcohol, Marijuana Review of Systems - Review of Systems Able to Perform ROS?: Yes Is the patient limited Colombian proficient: No Constitutional: Yes: Diaphoresis, Weakness. No: Chills, Fever, Night Sweats HEENTM: No: Recent change in vision, Throat Pain, Difficulty Swallowing Respiratory: No: Cough, Shortness of Breath Cardiac (ROS): Yes: Lightheadedness, Syncope, Chest Tightness. No: Chest Pain, Edema, Irregular Heart Rate, Palpitations ABD/GI: No: Vomiting, Abdominal cramping : No: Hematuria Musculoskeletal: No: Back Pain Neurological: Yes: Dizziness. No: Headache, Numbness, Paresthesia, Seizure, Unsteady Gait Hematologic/Lymphatic: No: Easy Bleeding, Easy Bruising *Physical Exam - Vital Signs Last Vital Signs Temp Pulse Resp BP Pulse Ox 98.8 F 72 17 117/72 98 06/13/18 12:04 06/13/18 13:00 06/13/18 13:00 06/13/18 13:00 06/13/18 13:00 - Physical Exam Comments: Constitutional: Well-developed, well-nourished male in no acute distress. Found semi-fowlers in hospital bed. Alert and oriented x4. Answered all questions appropriately and completely. Speech was non-labored, non-pressured. Head: Normocephalic. Atraumatic. Eyes: PERRL. EOMI. Sclerae white. Conjunctiva moist and not injected. EARS: Hearing grossly intact. NOSE: No nasal discharge. THROAT: Oral cavity and pharynx normal. Uvula midline. Teeth and gingiva in good general condition. Neck: Supple, trachea is midline. No JVD. Cardiovascular: Regular rate and regular rhythm. No murmur, rubs, clicks, or gallops. Peripheral pulses: Radial pulses full Respiratory: Equal chest rise and fall. Clear to auscultation bilaterally. No stridor, no wheezing, no rhonchi. Gastrointestinal: abdomen is soft, non-tender, non-distended. Neuro: Alert and oriented. No focal deficits, Cranial nerves II-XII intact, intact sensation to all four extremities. Moving all four extremities spontaneously. Psych: Affect: appropriate. Mood: normal. Skin: Minimal diaphoresis without pallor, otherwise warm and intact. No obvious signs of trauma to head, neck, back, chest, or abdomen. : No CVA tenderness. Medical Decision Making - Medical Decision Making *Reviewed nursing notes and prior visit documentation. 27 y/o male w/ history of asthma and syncope of unknown etiology presenting s/p syncopal episode at work. 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 Presenting without complaint. Afebrile. Vitals all unremarkable. PE unremarkable for CV, respiratory, or neurologic abnormalities. Concern for vasovagal syncope given HPI, history of similar, and unremarkable vitals, BGL, and physical exam. Low suspicion for arrhythmia given unremarkable EKG and lack of family history. Low suspicion for seizure as episode was witnessed and no tonic-clonic activity described. Low suspicion for hypoglycemia given normal BGL obtained by EMS. Low suspicion for toxic presentation as pt is now asymptomatic and denies substance abuse.Low suspicion for intracranial mass as pt is without localized neurologic lesion. Low suspicion for intracranial infection as pt is without signs of meningitis or encephalitis. Will obtain EKG and BMP. Ordered 1L of NS for rehydration. Pt repeatedly requesting to not have blood drawn and would like to leave without being observed. He expressed concern with affording the visit as he does not have insurance. Also requesting to leave because he is driving to [place] this afternoon. Held discussion for greater than 10 minutes attempting to persuade pt to remain for treatment and of risks associated with leaving AMA at the bedside with patient. Pt expressed verbal understanding of the nature of condition and treatment plan, including potential risks including cardiac arrest, severe infection, dehydration, myocardial infarction, stroke, respiratory failure, coma , severe disability and . Pt is clinically sober and without distracting injury. There is no evidence of psychosis, altered mental status or intoxication. Pt is considered to have capacity to make medical decisions. Pt does not have PCP. Entered referral for appointment at [facility] [place]. Discussed fact that clinic does not require insurance. Pt discharged from department AMA without further incident. *DC/Admit/Observation/Transfer Diagnosis at time of Disposition: Syncope Qualifiers: Syncope type: unspecified Qualified Code(s): R55 - Syncope and collapse - Discharge Dispostion Disposition: AGAINST MEDICAL ADVICE Condition at time of disposition: Good - Referrals Referrals: [facility] [place] [Provider Group] - Patient Instructions Printed Discharge Instructions: DI for Syncope in Adults (Fainting) Additional Instructions: You asked to leave against medical advice, so there is a chance you have a medical problem we are not aware of today. Please follow up with the resident clinic like we talked about. Call and make an appointment when you get back from [place]. The clinic information is: [facility] at [address] [place] [address] Come back to the emergency room if you pass out or feel like you might pass out. Other reasons to come back are fever, racing heart, chest pain, shortness of breath, or if you think you need emergency treatment. Print Language: CITIZEN OF [place] - Post Discharge Activity
[2018-06-13 12:19] VITALS: TEMP 98.8; BMI 28.1
[2018-06-13] MEDS ORDERED: SODIUM CHLORIDE 0.9% 500 ML INFUS.BAG IV ONE (12:21)
[2018-06-13 13:10] VITALS: BP 117/72; PULSE 72
--- NOTE | 2018-06-13 13:46 | PDOC ---
Attending Attestation - HPI HPI: 06/13/18 13:47 The patient is a 27 year old male, with a significant PMH of asthma, who presents to the emergency department with an episode of syncope that occurred today at work. Patient states he was working outside when he felt very hot accompanied with chest tightness and lightheadedness before blacking out. Paramedics reports patients cousin was at the incident who thinks the patient passed out for about one minute. The patient reports similar episode of syncope under the same circumstance. The patient states he was evaluated and discharged home by ER in [place]. The patient denies, shortness of breath, headache and dizziness. Denies fever, chills, nausea, vomit, diarrhea and constipation. Denies dysuria, frequency, urgency and hematuria. Allergies: NKDA Past surgical history: None reported Social history: Patient smokes marijuana and tobacco but denies alcohol use PCP: None reported - Physicial Exam PE: 06/13/18 13:49 Vitals: Triage vital signs reviewed General Appearance: No acute distress, well nourished, well developed Chest Wall: Nontender Cardiac: Regular rate and rhythm, no murmurs, no rubs, no gallops Lungs: Clear to auscultation bilateral, good air movement bilaterally Abdomen: Soft, nondistended, normal bowel sounds, nontender to palpation Genitourinary: Rectal: Exam deferred Extremities: Full range of motion to all extremities, no cyanosis, clubbing, or edema Skin: Warm and dry, no rashes or lesions, no rash, no petechiae Psych: Normal mood, normal affect - Medical Decision Making 06/13/18 13:50 Documentation prepared by Lorie Edwards, acting as chief medical director for Calvin Foster MD. <Lorie Edwards - Last Filed: 06/13/18 13:47> - Resident Resident Name: Bernard Hong - ED Attending Attestation I have performed the following: I have examined & evaluated the patient, The case was reviewed & discussed with the resident, I agree w/resident's findings & plan, Exceptions are as noted - Medical Decision Making History examination consistent with clear vasovagal syncope patient skipped breakfast sitting in a very hot car began to feel slightly diaphoretic with brief LOC EKG within normal limits labs ordered however at this point patient concern given his lack of insurance a discussed with patient risks and benefits of performing labs after careful consideration patient decided he did not require them at this time of for to sign out of the hospital AGAINST MEDICAL ADVICE. The patient is presenting with syncope. I am concerned that this may be secondary to underlying lab abnormalities. The patient has verbalized understanding of my concerns. The patient is clinically sober and appears free from distracting injury. The patient appears to have intact insight, judgment, and reason. In my opinion, this patient has the capacity to make decisions The risks of leaving against medical advice without further evaluation treatment were discussed with the patient. These risks include , permanant disability. The patient indicated understanding of these risks and appeared to have the capacity to make this decision. The patient is unwilling to stay for a observation and laboratory analysis.Patient is unwilling to remain for additional monitoring. He is refusing further care and leaving against medical advice I'm unable to convince the patient to stay. I have asked the patient to return as soon as possible to complete his/her evaluation. I have arranged follow for the patient 06/13/18 16:27 <Calvin Foster - Last Filed: 06/13/18 16:27> Heart Score/ECG Review - ECG Impressions Comment:: 06/13/18 16:24 EKG performed at 1210. Demonstrates normal sinus rhythm [address] elevations , no T-wave inversions, no evidence of WPW, Brugada, prolonged QT. Interpreted by me. <Calvin Foster - Last Filed: 06/13/18 16:27>
--- NOTE | 2018-06-16 10:48 | EKG ---
Test Reason : Blood Pressure : / mmHG Vent. Rate : 066 BPM Atrial Rate : 066 BPM P-R Int : 136 ms QRS Dur : 098 ms QT Int : 400 ms P-R-T Axes : 037 052 042 degrees QTc Int : 419 ms NORMAL SINUS RHYTHM WITH SINUS ARRHYTHMIA NORMAL ECG WHEN COMPARED WITH ECG OF 15-FEB-2018 09:38, PREMATURE VENTRICULAR COMPLEXES ARE NO LONGER PRESENT Confirmed by BUCK HERNANDEZ MD ([id number]) on 06/16/2018 10:48:15 AM Referred By: Confirmed By:BUCK HERNANDEZ MD
== END 2018-06-13 13:05 | disposition left against medical advice (07) ==
LOC: JER 11:51
DX: R55 Syncope and collapse (principal); J45.909 Unspecified asthma, uncomplicated; F17.210 Nicotine dependence, cigarettes, uncomplicated
CPT/HCPCS: 93005; 93010; 99284-25